=== PATIENT | female | born 1950 | race Caucasian/White ===

== ENCOUNTER 2018-03-01 07:04 | Day surgery (SDC) | payer MEDICARE, OTHER ==
[~2018-03-01 07:04] MED LIST: Lactated Ringers 1,000 ML IV SCH; Lidocaine 1%/Sod Bicarbonate in NS 8.4% 1 ML Syringe IDERM PRN; Sodium Chloride 0.9% 10 ML Syringe FLUSH PRN
[2018-03-01] MEDS ORDERED: Propofol 200 MG/20 ML SDV ONE (07:16)
[2018-03-01] MEDS ORDERED: fentaNYL 100 MCG/2 ML SDV ONE (07:16)
--- NOTE | 2018-03-01 07:42 | PCM.PREANE ---
Preanesthetic Assessment - Anesthesia/Transfusion/Family Hx Anesthesia History: Prior Anesthesia Without Reaction Family History of Anesthesia Reaction: No Transfusion History: No Prior Transfusion(s) - Review of Systems General: No Symptoms Pulmonary: No Symptoms Cardiovascular: Other (CAD, Increased lipids, history of NV, HTN, on plavix) Gastrointestinal: Abdominal Pain, Nausea Other: Reports: Anxiety - Physical Assessment NPO Status Date: 02/28/18 NPO Status Time: 21:00 Pulse: 80 O2 Sat by Pulse Oximetry: 94 Respiratory Rate: 16 Blood Pressure: 138/89 Temperature: 37.1 C Weight: 70 kg ASA Class: 3 Mental Status: Alert & Oriented x3 Dentition: Reports: Normal Dentition Thyro-Mental Finger Breadths: 3 Mouth Opening Finger Breadths: 3 ROM/Head Extension: Full Lungs: Clear to Auscultation, Normal Respiratory Effort Cardiovascular: Regular Rate, Regular Rhythm - Allergies Allergies/Adverse Reactions: Allergies Allergy/AdvReac Type Severity Reaction Status Date / Time Sulfa (Sulfonamide Allergy Hives Verified 02/28/18 15:44 Antibiotics) metals Allergy Cannot Uncoded 02/28/18 15:44 Remember - Blood Blood Available: No Product(s) Available: None - Anesthesia Plan Beta Jenna: Metoprolol Med Last Dose Date: 02/28/18 Med Last Dose Time: 21:00 - Acknowledgements Anesthesia Type Planned: MAC Pt an Appropriate Candidate for the Planned Anesthesia: Yes Alternatives and Risks of Anesthesia Discussed w Pt/Guardian: Yes Pt/Guardian Understands and Agrees with Anesthesia Plan: Yes PreAnesthesia Questionnaire HEENT History: Reports: Impaired Vision, Other (See Below) Other HEENT History: wears glasses, has permanent bridge Cardiovascular History: Reports: High Cholesterol, Hypertension, NV, Stents, Other (See Below) Other Cardiovascular History: atherosclerotic heart disease Respiratory History: Reports: None Gastrointestinal History: Reports: Other (See Below) Other Gastrointestinal History: LUQ pain, epigastric pain, diverticulitis Genitourinary History: Reports: Other (See Below) Other Genitourinary History: dysuria PET SITTER History: Reports: Other (See Below) Other OB/BYN History: breast lumpectomy Musculoskeletal History: Reports: Arthritis, Other (See Below) Other Musculoskeletal History: sacroilliac inflammation, restless leg syndrome Neurological History: Reports: Migraines Psychiatric History: Reports: Anxiety Endocrine/Metabolic History: Reports: Osteopenia, Vitamin D Deficiency, Other ( See Below) Other Endocrine/Metabolic History: graves disease, thyroid nodule Hematologic History: Reports: Anemia Immunologic History: Reports: None Oncologic (Cancer) History: Reports: None Dermatologic History: Reports: Eczema - Past Surgical History HEENT Surgical History: Reports: Tonsillectomy Cardiovascular Surgical History: Reports: None Respiratory Surgical History: Reports: None GI Surgical History: Reports: Colonoscopy Female Surgical History: Reports: None, Hysterectomy Male Surgical History: Reports: None Neurological Surgical History: Reports: None Oncologic Surgical History: Reports: None Dermatological Surgical History: Reports: None - SUBSTANCE USE Smoking Status *Q: Never Smoker Recreational Drug Use History: No - HOME MEDS Home Medications: Home Meds Calcium Phosphate Trib/Vit D3 [Calcium Gummies] 1 tab PO BID 02/28/18 [History] Cholecalciferol (Vitamin D3) [Vitamin D3] 2,000 unit PO DAILY 02/28/18 [History] Clopidogrel [Plavix] 75 mg PO DAILY 02/28/18 [History] Cyanocobalamin (Vitamin B-12) [Vitamin B-12] 1,000 mcg PO DAILY 02/28/18 [ History] Fesoterodine Fumarate [Toviaz] 4 mg PO DAILY 02/28/18 [History] Folic Acid 1 mg PO DAILY 02/28/18 [History] Gluc 2KCl/Chondr/Jannet Hy/Hy Ac [Glucosamine & Chondroitin Cap] 1 tab PO DAILY [History] Lactobacillus Acidophilus [Acidophilus] 1 tab PO DAILY 02/28/18 [History] Metoprolol Succinate 25 mg PO BEDTIME 02/28/18 [History] [place]-3 Acid Ethyl Esters [Lovaza] 1 gm PO DAILY 02/28/18 [History] Ramipril 1.25 mg PO DAILY 02/28/18 [History] Sodium Bicarbonate 325 mg PO BID 02/28/18 [History] atorvaSTATin [Lipitor] 40 mg PO DAILY 02/28/18 [History] buPROPion [Wellbutrin SR] 150 mg PO DAILY 02/28/18 [History] rOPINIRole [Requip] 1 mg PO BEDTIME 02/28/18 [History] - CURRENT (IN HOUSE) MEDS Current Meds: Current Medications Lactated Ringer's (Ringers, Lactated) 1,000 mls @ 125 mls/hr IV ASDIRECTED DIOGENES Stop: 03/01/18 23:00 Lidocaine/Sodium Bicarbonate (Buffered Lidocaine 1% In Ns 8.4%) 0.25 ml IDERM ONETIME PRN PRN Reason: Prior to IV Start Stop: 03/01/18 18:00 Sodium Chloride (Saline Flush) 10 ml FLUSH ASDIRECTED PRN PRN Reason: Keep Vein Open Stop: 03/01/18 18:00 Discontinued Medications Fentanyl (Sublimaze) Confirm Administered Dose 100 mcg .ROUTE .STK-MED ONE Stop: 03/01/18 07:17 Propofol (Diprivan 20 Ml) Confirm Administered Dose 200 mg .ROUTE .STK-MED ONE Stop: 03/01/18 07:17
--- NOTE | 2018-03-01 08:19 | PCM.OPNOTE ---
- General Post-Op/Procedure Note Date of Surgery/Procedure: 03/01/18 Operative Procedure(s): Esophagogastroduodenoscopy with GE junction body of the stomach and antral biopsies Findings: Moderate sized sliding type I hiatal hernia and no peptic change. Pre Op Diagnosis: Abdominal pain Post-Op Diagnosis: Sliding hiatal hernia Anesthesia Technique: MAC, Moderate Sedation Primary Surgeon: German Stoll Pathology: GE junction body of the stomach and antral biopsies EBL in mLs: 0 Complications: None Condition: Good Free Text/Narrative:: After adequate IV sedation and analgesia was obtained with monitoring the patient was placed on her left side. Through a bite-block lubricated upper endoscope was inserted into the esophagus then advanced under direct vision to the stomach. Additional air was given here. The scope was then introduced through the pylorus into the second part of the duodenum. The second and first parts were endoscopically normal with no inflammatory changes seen. The antrum and body stomach were unremarkable as well. Given her history I took a random biopsy of the antrum and the body of the stomach. In the retroflexed view I could see the sliding hiatal hernia which was not compromised. The fundic and cardiac regions were normal. The gastric motility also was grossly normal. The scope was withdrawn to the GE junction which was unremarkable. Random biopsy was taken here. The body of the esophagus was endoscopically normal with no strictures or inflammatory changes seen. Welfare Project Manager photographs were taken for the patient and for the medical record.
--- NOTE | 2018-03-01 08:20 | PCM48HPAN ---
Post Anesthesia Note - EVALUATION WITHIN 48HRS OF ANESTHETIC Vital Signs in Normal Range: Yes Patient Participated in Evaluation: Yes Respiratory Function Stable: Yes Airway Patent: Yes Cardiovascular Function Stable: Yes Hydration Status Stable: Yes Pain Control Satisfactory: Yes Nausea and Vomiting Control Satisfactory: Yes Mental Status Recovered: Yes Pulse Rate: 83 SaO2: 92 Resp Rate: 14 Temperature: 37.1 C Blood Pressure: 123/69
== END 2018-03-01 09:03 | disposition home or self-care (01) ==
LOC: JD.SDS 07:04
PROVIDERS: ATTEND Surgery
DX: K31.9 Disease of stomach and duodenum, unspecified (principal); K20.9 Esophagitis, unspecified; K44.9 Diaphragmatic hernia without obstruction or gangrene; F41.9 Anxiety disorder, unspecified; M19.90 Unspecified osteoarthritis, unspecified site; I25.10 Atherosclerotic heart disease of native coronary artery without angina pectoris; E78.5 Hyperlipidemia, unspecified; I10 Essential (primary) hypertension; M85.80 Other specified disorders of bone density and structure, unspecified site; M46.1 Sacroiliitis, not elsewhere classified; E55.9 Vitamin D deficiency, unspecified; Z79.899 Other long term (current) drug therapy; Z88.2 Allergy status to sulfonamides; Z98.890 Other specified postprocedural states
CPT/HCPCS: 43239; 88305; J3010; J7120; 00731; J2704